=== PATIENT | male | born 1970 | race Asian ===

== ENCOUNTER 2020-09-24 04:23 | Day surgery (SDC) | payer OTHER ==
[~2020-09-24 04:23] MED LIST: ceFAZolin SODIUM 1 GM VIAL IVPB ONE
[2020-09-24 08:08] VITALS: BMI 20.3
[2020-09-24] MEDS ORDERED: KETOROLAC TROMETHAMINE 30 MG/1 ML VIAL ONE (10:30)
[2020-09-24] MEDS ORDERED: EPHEDRINE SULFATE/0.9% NACL/PF 50 MG/10 ML SYRINGE NR ONE (10:30)
[2020-09-24] MEDS ORDERED: DEXAMETHASONE SOD PHOSPHATE 4 MG/1 ML VIAL ONE (10:30)
[2020-09-24] MEDS ORDERED: PROPOFOL 20 ML ONE ×3 (10:30→11:45)
[2020-09-24] MEDS ORDERED: LIDOCAINE HCL/PF 2% SDV 5ML VIAL ONE (10:30)
[2020-09-24] MEDS ORDERED: MIDAZOLAM HCL 2 MG/2 ML SINGLE DOSE VIAL ONE (10:31)
[2020-09-24] MEDS ORDERED: SUCCINYLCHOLINE CHLORIDE 200 MG/10 ML SYRINGE ONE (10:31)
[2020-09-24] MEDS ORDERED: oxyCODONE HCL 5 MG TABLET PO PRN ×3 (11:21→12:57)
[2020-09-24] MEDS ORDERED: ONDANSETRON 4 MG/2 ML VIAL IVPUSH PRN ×2 (11:21→12:57)
[2020-09-24] MEDS ORDERED: LACTATED RINGERS SOLUTION 1,000 ML IV SCH (11:30)
[2020-09-24] MEDS ORDERED: ceFAZolin SODIUM 1 GM VIAL IVPB ONE (11:53)
[2020-09-24] MEDS ORDERED: PROMETHAZINE HCL 25 MG/1 ML VIAL IVPB PRN (12:57)
[2020-09-24 13:49] VITALS: TEMP 97.8
[2020-09-24 15:16] VITALS: BP 139/88; PULSE 72
== END 2020-09-24 14:25 | disposition home or self-care (01) ==
LOC: JASU-SURG 04:23
PROVIDERS: ATTEND Urology
PROC: 0T7D8DZ Dilation of Urethra with Intraluminal Device, Via Natural or Artificial Opening Endoscopic (ICD-10-PCS; 2020-09-24)
PROC: 0TF78ZZ Fragmentation in Left Ureter, Via Natural or Artificial Opening Endoscopic (ICD-10-PCS; principal; 2020-09-24 10:00)
PROC: 0TCB8ZZ Extirpation of Matter from Bladder, Via Natural or Artificial Opening Endoscopic (ICD-10-PCS; 2020-09-24 10:00)
DX: N28.89 Other specified disorders of kidney and ureter (principal); N20.1 Calculus of ureter
CPT/HCPCS: 94760

== ENCOUNTER 2020-10-17 11:54 | Emergency (ER) | payer OTHER ==
[2020-10-17 12:11] VITALS: TEMP 98.8; BMI 19.0
[2020-10-17] MEDS ORDERED: LACTATED RINGERS SOLUTION 1000 ML INFUS.BAG IV ONE (12:49)
[2020-10-17 14:36] LABS: BASO % 1.5 % (0-2.0); EOS % 9.5 % (0-4.5); HEMATOCRIT 38.3 % (35.4-49); HEMOGLOBIN 12.5 GM/dL (11.7-16.9); MCHC 32.7 g/dl (32.0-35.9); MEAN CELL VOLUME 91.9 fl (80-96); MEAN PLT VOLUME 6.9 fl (7.5-11.1); MONO % 8.5 % (3.8-10.2); NEUT % 56.5 % (42.8-82.8); PLATELET COUNT 352 10^3/uL (134-434); RBC 4.17 M/mm3 (4.00-5.60); RDW 14.2 % (11.9-15.9); WHITE BLOOD COUNT 7.9 K/mm3 (4.0-10.0)
[2020-10-17 14:43] LABS: INR 0.98 (0.83-1.09); PROTHROMBIN TIME (PATIENT) 11.9 SEC (9.7-13.0)
[2020-10-17 14:46] LABS: ACTIVATED PTT 32.8 SECONDS (25.2-36.5)
[2020-10-17 14:54] LABS: ALBUMIN 3.4 g/dl (3.4-5.0); CALCIUM 8.3 mg/dL (8.5-10.1)
[2020-10-17 14:56] LABS: BLOOD UREA NITROGEN 18.8 mg/dL (7-18); EPI CELLS >36 /uL (0-25.1); HYALINE CASTS 14 /uL (0-3.1); MAGNESIUM 2.2 mg/dL (1.8-2.4); PH,URINE 5.5 (5.0-8.0); URINE APPEARANCE TURBID; URINE BACTERIA 8 /uL (0-1359); URINE BILIRUBIN 1+ (NEGATIVE); URINE COLOR RED; URINE GLUCOSE (UA) NEGATIVE (NEGATIVE); URINE KETONE NEGATIVE (NEGATIVE); URINE LEUK ESTERASE 3+ (NEGATIVE); URINE NITRITE NEGATIVE (NEGATIVE); URINE PROTEIN 4+ (NEGATIVE); URINE RBC 36360 /uL (0-23.9); URINE UROBILINOGEN 0.2 mg/dL (0.2-1.0); URINE WBC 439 /uL (0-25.8)
[2020-10-17 14:58] LABS: PHOSPHOROUS 3.6 mg/dL (2.5-4.9)
[2020-10-17 14:59] LABS: BILIRUBIN,TOTAL 0.4 mg/dL (0.2-1); TOT PROT 6.3 g/dl (6.4-8.2)
[2020-10-17 16:05] VITALS: BP 124/87; PULSE 57
== END 2020-10-17 15:40 | disposition home or self-care (01) ==
LOC: JER 11:54
DX: I95.9 Hypotension, unspecified (principal); R53.1 Weakness
CPT/HCPCS: 36415; 80053; 81003; 83735; 84100; 85025; 85610; 85730; 86850; 86900; 86901; 87086; 93005; 93010; 99284-25

== ENCOUNTER 2020-12-12 04:24 | Day surgery (SDC) | payer OTHER ==
[2020-12-11 11:33] VITALS: BMI 20.3
[2020-12-12] MEDS ORDERED: DEXMEDETOMIDINE HCL 200 MCG/2 ML IVPB ONE (06:55)
[2020-12-12] MEDS ORDERED: LIDOCAINE HCL/PF 2% SDV 5ML VIAL ONE (07:09)
[2020-12-12] MEDS ORDERED: ceFAZolin SODIUM 1 GM VIAL ONE (07:09)
[2020-12-12] MEDS ORDERED: LIDOCAINE HCL 2% JELLY (5 ML/TUBE) ONE (07:09)
[2020-12-12] MEDS ORDERED: MIDAZOLAM HCL 2 MG/2 ML SINGLE DOSE VIAL ONE (07:10)
[2020-12-12] MEDS ORDERED: PROPOFOL 20 ML ONE ×2 (07:11)
[2020-12-12] MEDS ORDERED: KETAMINE HCL 200 MG/20 ML VIAL ONE (07:11)
[2020-12-12] MEDS ORDERED: IOHEXOL 300 MG/ML INFUS..BTL IJ ONE ×2 (07:33→09:00)
[2020-12-12] MEDS ORDERED: ceFAZolin SODIUM 1 GM VIAL IVPB ONE ×2 (07:33→07:53)
[2020-12-12] MEDS ORDERED: ENTECAVIR 0.5 MG PO SCH (10:00)
[2020-12-12 12:00] VITALS: BP 129/88; PULSE 62; TEMP 97.7
== END 2020-12-12 11:55 | disposition home or self-care (01) ==
LOC: JASU-SURG 04:24
PROVIDERS: ATTEND Urology
PROC: 0TC78ZZ Extirpation of Matter from Left Ureter, Via Natural or Artificial Opening Endoscopic (ICD-10-PCS; principal; 2020-12-12 07:30)
PROC: 0T778DZ Dilation of Left Ureter with Intraluminal Device, Via Natural or Artificial Opening Endoscopic (ICD-10-PCS; 2020-12-12 07:30)
PROC: BT1FYZZ Fluoroscopy of Left Kidney, Ureter and Bladder using Other Contrast (ICD-10-PCS; 2020-12-12 07:30)
DX: N13.2 Hydronephrosis with renal and ureteral calculous obstruction (principal)
CPT/HCPCS: 36415; 82360; 88300-TC; 94760